=== PATIENT | male | born 1950 | race African-American/Black ===

== ENCOUNTER 2021-12-06 16:43 | Emergency (ER) | payer OTHER ==
[2021-12-06 17:04] VITALS: BP 114/78; TEMP 98.6; BMI 32.5
[2021-12-06] MEDS ORDERED: LIDOCAINE 5% TOPICAL PATCH TP ONE (17:32)
[2021-12-06] MEDS ORDERED: METHOCARBAMOL 500 MG TABLET PO ONE (17:32)
[2021-12-06] MEDS ORDERED: ACETAMINOPHEN 325 MG TABLET (FP) PO ONE (17:32)
[2021-12-06] MEDS ORDERED: METHOCARBAMOL 500 MG TABLET ONE (17:39)
[2021-12-06] MEDS ORDERED: ACETAMINOPHEN 325 MG TABLET (FP) ONE (17:40)
[2021-12-06] MEDS ORDERED: LIDOCAINE 5% TOPICAL PATCH ONE (17:40)
[2021-12-06 20:51] VITALS: PULSE 68
[2021-12-06] MEDS ORDERED: LIDOCAINE PATCH REMOVAL MC SCH (22:00)
== END 2021-12-06 20:53 ==
LOC: JER 16:43
DX: M54.2 Cervicalgia (principal); V49.50XA Passenger injured in collision with unspecified motor vehicles in traffic accident, initial encounter
CPT/HCPCS: 70450-TC; 72125-TC; 72131-TC; 99284-25

== ENCOUNTER 2024-05-23 20:50 | Observation (INO) | payer OTHER ==
[2024-05-23 23:06] LABS: BASO % 0.8 % (0-2.0); EOS % 2.2 % (0-4.5); HEMATOCRIT 37.3 % (35.4-49); HEMOGLOBIN 12.1 GM/dL (11.7-16.9); LYMPH % 36.6 % (8-40); MCH 29.5 pg (25.7-33.7); MCHC 32.5 g/dl (32.0-35.9); MEAN CELL VOLUME 90.7 fl (80-96); MONO % 7.7 % (3.8-10.2); NEUT % 52.7 % (42.8-82.8); PLATELET COUNT 181 10^3/uL (134-434); RBC 4.11 M/mm3 (4.00-5.60); RDW 13.1 % (11.9-15.9); WHITE BLOOD COUNT 8.6 K/mm3 (4.0-10.0)
[2024-05-23] MEDS: SODIUM CHLORIDE 0.9% 500 ML INFUS.BAG IV ONE (23:12)
[2024-05-23 23:15] LABS: VENOUS BASE EXCESS 0.3 mmol/L (-2-2); VENOUS O2 SATURATION 17.4 % (70-80); VENOUS PCO2 64.5 mmHg (38-52); VENOUS PH 7.272 (7.310-7.410)
[2024-05-23 23:20] LABS: CHLORIDE 96 mmol/L (98-107); POTASSIUM 5.1 mmol/L (3.5-5.1); SODIUM 131 mmol/L (136-145)
[2024-05-23 23:22] LABS: ALBUMIN 3.7 g/dl (3.4-5.0)
[2024-05-23 23:23] LABS: ANION GAP 4 mmol/L (4-13); BLOOD UREA NITROGEN 18.2 mg/dL (7-18); CO2 31 mmol/L (21-32); MAGNESIUM 1.8 mg/dL (1.8-2.4)
[2024-05-23 23:23] LABS: PH,URINE 7.5 (5.0-8.0); URINE APPEARANCE Error; URINE BILIRUBIN NEGATIVE (NEGATIVE); URINE COLOR YELLOW; URINE GLUCOSE (UA) 3+ (NEGATIVE); URINE KETONE NEGATIVE (NEGATIVE); URINE LEUK ESTERASE NEGATIVE (NEGATIVE); URINE NITRITE NEGATIVE (NEGATIVE); URINE PROTEIN NEGATIVE (NEGATIVE); URINE UROBILINOGEN 0.2 mg/dL (0.2-1.0)
[2024-05-23 23:25] LABS: SGPT/ALT 14 U/L (13-61)
[2024-05-23 23:26] LABS: CREATININE 1.2 mg/dL (0.55-1.3); PHOSPHOROUS 2.8 mg/dL (2.5-4.9); SGOT/AST 7 U/L (15-37)
[2024-05-23 23:27] LABS: TOT PROT 8.5 g/dl (6.4-8.2)
[2024-05-23 23:29] LABS: ALK PHOS 99 U/L (45-117); BILIRUBIN,TOTAL 0.4 mg/dL (0.2-1)
[2024-05-23 23:30] LABS: GLUCOSE,RANDOM 468 mg/dL (74-106)
[2024-05-24] MEDS: INSULIN (LEVEMIR) 100 UNITS/ML UNITS SQ ONE (00:36)
[2024-05-24 07:00] LABS: BASO % 1.3 % (0-2.0); EOS % 2.3 % (0-4.5); HEMATOCRIT 33.5 % (35.4-49); LYMPH % 45.6 % (8-40); MCH 29.6 pg (25.7-33.7); MCHC 32.8 g/dl (32.0-35.9); MEAN CELL VOLUME 90.2 fl (80-96); MEAN PLT VOLUME 9.8 fl (7.5-11.1); MONO % 8.4 % (3.8-10.2); NEUT % 42.4 % (42.8-82.8); PLATELET COUNT 158 10^3/uL (134-434); RBC 3.72 M/mm3 (4.00-5.60); WHITE BLOOD COUNT 6.8 K/mm3 (4.0-10.0)
[2024-05-24 07:13] LABS: POTASSIUM 4.5 mmol/L (3.5-5.1)
[2024-05-24 07:18] LABS: CALCIUM 9.3 mg/dL (8.5-10.1)
[2024-05-24 07:19] LABS: ALBUMIN 3.1 g/dl (3.4-5.0); BLOOD UREA NITROGEN 16.6 mg/dL (7-18); MAGNESIUM 1.7 mg/dL (1.8-2.4)
[2024-05-24 07:23] LABS: BILIRUBIN,TOTAL 0.3 mg/dL (0.2-1)
[2024-05-24 07:24] LABS: TOT PROT 7.2 g/dl (6.4-8.2)
[2024-05-24] MEDS ORDERED: MAGNESIUM OXIDE 400 MG TABLET (FP) PO ONE (08:15)
[2024-05-24 08:47] VITALS: BMI 26.8
[2024-05-24] MEDS ORDERED: INSULIN (LEVEMIR) 100 UNITS/ML UNITS SQ SCH (10:00)
[2024-05-24] MEDS: CARVEDILOL 6.25 MG TABLET (FP) PO SCH (10:43)
[2024-05-24] MEDS: NIFEdipine E.R 60 MG TABLET PO SCH (10:43)
[2024-05-24] MEDS: ENOXAPARIN NA (PORCINE) 40 MG/0.4 ML DISP.SYRIN SQ SCH (10:44)
[2024-05-24] MEDS: NICOTINE 7 MG/24 HOURS TOPICAL PATCH TD SCH (10:44)
[2024-05-24] MEDS: INSULIN (LEVEMIR) 100 UNITS/ML UNITS SQ SCH (10:45)
[2024-05-24] MEDS ORDERED: methaDONE 40 MG, methaDONE 20 MG PO ONE (10:57)
[2024-05-24] MEDS: MAGNESIUM OXIDE 400 MG TABLET (FP) PO ONE (11:38)
[2024-05-24] MEDS: methaDONE HCL 40 MG DISPERSABLE TABLET PO ONE (11:40)
[2024-05-24] MEDS: methaDONE 40 MG, methaDONE 20 MG PO ONE (11:42)
[2024-05-24] MEDS: INSULIN ASPART SLIDING SCALE (NOVOLOG) 1 VIAL SQ SCH (12:06)
[2024-05-24] MEDS: SILVER SULFADIAZINE 1% TOP CREAM 50 GM JAR TP SCH (16:22)
[2024-05-24] MEDS: ATORVASTATIN CA 40 MG TABLET (FP) PO SCH (23:02)
[2024-05-25] MEDS: methaDONE HCL 40 MG DISPERSABLE TABLET PO SCH (06:25)
[2024-05-25] MEDS ORDERED: INSULIN (LEVEMIR) 100 UNITS/ML UNITS SQ SCH ×2 (07:29→22:00)
[2024-05-25 07:46] VITALS: PULSE 52
[2024-05-25 09:04] LABS: POTASSIUM 4.3 mmol/L (3.5-5.1)
[2024-05-25 09:24] VITALS: BP 112/60; RESP 18; TEMP 97.7
[2024-05-25 09:27] LABS: ALBUMIN 3.2 g/dl (3.4-5.0); CALCIUM 9.6 mg/dL (8.5-10.1); MAGNESIUM 1.8 mg/dL (1.8-2.4)
[2024-05-25 09:30] LABS: CREATININE 0.8 mg/dL (0.55-1.3)
[2024-05-25 09:31] LABS: TOT PROT 7.1 g/dl (6.4-8.2)
[2024-05-25 09:33] LABS: BILIRUBIN,TOTAL 0.3 mg/dL (0.2-1)
[2024-05-25 09:35] LABS: BASO % 0.8 % (0-2.0); EOS % 2.9 % (0-4.5); HEMATOCRIT 34.1 % (35.4-49); HEMOGLOBIN 11.2 GM/dL (11.7-16.9); LYMPH % 49.1 % (8-40); MCH 29.5 pg (25.7-33.7); MCHC 32.8 g/dl (32.0-35.9); MEAN PLT VOLUME 10.3 fl (7.5-11.1); MONO % 10.1 % (3.8-10.2); NEUT % 37.1 % (42.8-82.8); PLATELET COUNT 148 10^3/uL (134-434); RBC 3.78 M/mm3 (4.00-5.60); RDW 12.9 % (11.9-15.9); WHITE BLOOD COUNT 5.5 K/mm3 (4.0-10.0)
== END 2024-05-25 11:11 | disposition home health service (06) ==
LOC: JER 20:50 → JERBED 05-24 00:24 → J7W 05-24 07:20
PROVIDERS: ADMIT Student in an Organized Health Care Education/Training Program; ATTEND Nurse Practitioner Acute Care
PROC: 3E013VG Introduction of Insulin into Subcutaneous Tissue, Percutaneous Approach (ICD-10-PCS; principal; 2024-05-24)
PROC: 3E0337Z Introduction of Electrolytic and Water Balance Substance into Peripheral Vein, Percutaneous Approach (ICD-10-PCS; 2024-05-24)
DX: E11.65 Type 2 diabetes mellitus with hyperglycemia (principal); I50.30 Unspecified diastolic (congestive) heart failure; I11.0 Hypertensive heart disease with heart failure; F11.20 Opioid dependence, uncomplicated; Z86.19 Personal history of other infectious and parasitic diseases; E11.622 Type 2 diabetes mellitus with other skin ulcer; R01.1 Cardiac murmur, unspecified; Z89.429 Acquired absence of other toe(s), unspecified side; F17.210 Nicotine dependence, cigarettes, uncomplicated
CPT/HCPCS: 36415; 71045-TC-FY; 80053; 81003; 82010; 82803; 82962; 83036; 83605; 83735; 84100; 85025; 87086; 93005; 93010; 96372; 99285-25; G0378